=== PATIENT | female | born 1985 | race Caucasian/White ===

== ENCOUNTER 2022-03-25 10:59 | Outpatient (CLI) | payer MEDICARE, MEDICAID, SELFPAY ==
[2022-03-25 11:19] LABS: Basophils Percent Auto 2.2 % (0.0-3.0); Eosinophils Percent Auto 1.7 % (0.0-7.0); Hematocrit 43.7 % (33.0-51.0); Hemoglobin* 14.6 gm/dL (12.0-16.0); Immature Granulocytes Pct Auto 0.2 %; Lymphocytes Percent Auto 30.7 % (20-44); Mean Corpuscular HGB Conc 33 gm/dL (32-36); Mean Corpuscular Hemoglobin 33 pg (26-34); Mean Corpuscular Volume 98 fL (80-100); Monocytes Percent Auto 9.2 % (0.0-11.0); Platelet Count* 209 K/uL (140-440); RDW Coefficient of Variation % 12.7 % (11.5-15.5); Red Blood Count 4.47 m/uL (4.00-5.20); White Blood Count* 4.04 K/uL (4.50-11.00)
[2022-03-25 11:51] LABS: Slide Review Reflex No
[2022-03-25 14:28] LABS: Chloride* 104 mmol/L (96-114); Potassium* 4.6 mmol/L (3.6-5.1); Sodium* 137 mmol/L (135-149)
[2022-03-25 14:31] LABS: Alanine Aminotransferase* 33 U/L (4-35); Alkaline Phosphatase* 74 U/L (40-150); Aspartate Amino Transferase* 43 U/L (12-35); Bilirubin Total* 0.8 mg/dL (0.1-1.5); Blood Urea Nitrogen* 19 mg/dL (5-24); Calcium* 8.6 mg/dL (8.4-10.6); Carbon Dioxide* 27 mmol/L (20-32); Creatinine* 1.2 mg/dL (0.5-1.5); Estimated Glomerular Filt Rate 60 ml/min; Glucose* 89 mg/dL (60-115); Total Protein* 7.2 g/dL (6.0-8.3); Triglycerides* 55 mg/dL (40-149)
[2022-03-25 15:24] LABS: HDL Cholesterol* 56 mg/dL (>=50); LDL Cholesterol Calculated 85 mg/dL (<100)
[2022-03-25 15:42] LABS: Cholesterol* 152 mg/dL (90-199)
== END 2022-03-25 11:00 | disposition home or self-care (01) ==
PROVIDERS: PCP Family Medicine; Visit Provider Family Medicine
DX: Z01.419 Encounter for gynecological examination (general) (routine) without abnormal findings (principal); E03.9 Hypothyroidism, unspecified; J30.9 Allergic rhinitis, unspecified; N39.0 Urinary tract infection, site not specified; D72.819 Decreased white blood cell count, unspecified; B00.1 Herpesviral vesicular dermatitis
CPT/HCPCS: 80053; 80061; 84443; 85025

== ENCOUNTER 2023-04-03 15:53 | Outpatient (CLI) | payer MEDICARE, MEDICAID, SELFPAY | END 2023-04-03 15:54 | disposition home or self-care (01) | PROVIDERS: PCP Family Medicine; Visit Provider Family Medicine | DX: Z00.00 Encounter for general adult medical examination without abnormal findings (principal); E03.9 Hypothyroidism, unspecified; D72.819 Decreased white blood cell count, unspecified | CPT/HCPCS: 80053; 84443 ==

== ENCOUNTER 2023-07-31 13:50 | Outpatient (CLI) | payer MEDICARE, MEDICAID, SELFPAY | END 2023-07-31 13:51 | disposition home or self-care (01) | PROVIDERS: PCP Family Medicine; Visit Provider Internal Medicine | DX: R07.89 Other chest pain (principal); R00.1 Bradycardia, unspecified | CPT/HCPCS: 93306 ==

== ENCOUNTER 2023-09-14 14:01 | Outpatient (CLI) | payer MEDICARE, MEDICAID, SELFPAY ==
--- OUTSIDE RECORDS SUMMARY | 2023-09-14 14:08 | XMS_ITS | Clinical Summary ---
Author Name Unknown Organization [employer] [facility] Address [place], [place] [address] Care Team Providers Care Rn School Name Role Phone Lisa St MD Primary Care Provider + Allergies No known active allergies Medications Medication Sig Dispensed Refills Start Date End Date Status Levothyroxine 50 mcg cap Take by mouth before breakfast. 0 04/08/2020 Active levocetirizine (XYZAL) 5 mg tab tablet Take 1 tablet by mouth once daily in the evening. 0 04/08/2020 Active trimethoprim 100 mg tablet Take 1 tablet by mouth once daily. For UTI prevention 0 04/08/2020 Active Encounters Date Type Department Care Team Description 08/23/2023 Telephone [place] [address] [place], [place] [id number] [place] [phone] Wen Parks MD Cardiovascular Diagnostic Testing (Echo results) 07/31/2023 2:00 PM MANAGER REPORT Orders Only [facility] [address] [place] [address] 2 scans: (2-Ord) ECHO TTE COMPLETE WO CONTRAST ([id number]) 07/31/2023 Travel 07/14/[address] [facility] at [address] [phone] Wen Parks MD Results from Last 3 Months Social History Tobacco Use Types Packs/Day Years Used Date Smoking Tobacco: Never Smokeless Tobacco: Never Tobacco Cessation:Counseling Given: Yes Social Connections Answer Date Recorded Frequency of Communication with Friends and Fami ly Not on file 02/13/2023 Sex and Gender Information Value Date Recorded Sex Assigned at Not on file Gender Identity Not on file Sexual Orientation Not on file Obstetrics History Last Filed Vital Signs Vital Sign Reading Time Taken Comments Blood Pressure - - Pulse 59 04/08/2020 1:43 PM CDT Temperature - - Respiratory Rate - - Oxygen Saturation 99% 04/08/2020 1:43 PM CDT Inhaled Oxygen Concentration - - Weight 60.8 kg (134 lb) 04/08/2020 1:43 PM CDT Height - - Body Mass Index - - Plan of Treatment Health Maintenance Due Date Last Done Comments COVID-19 vaccine series (#1) 06/21/1986 Tdap 1996 Depression screening for age 12+ 1997 HIV for age 15-65 2000 BMI (ht and wt on same day) for age 18+ 12/20/2003 Hepatitis C screening for ag e 18-79 12/20/2003 Tetanus booster 2005 Pap test for age 21-65 2006 Influenza for age 9-49 04/21/2023 Pneumococcal series for age 6-64 Aged Out No longer eligible based on patient's age to complete this topic Procedures Procedure Name Priority Date/Time Associated Diagnosis Comments ECHO TTE COMPLETE WO CONTRAST Routine 07/31/2023 3:02 PM MANAGER REPORT Chest pain EXTENDED HOLTER Routine 06/20/2023 Sinus bradycardia from Last 3 Months Results * ECHO TTE COMPLETE WO CONTRAST (07/31/2023 3:02 PM MANAGER REPORT) AORTIC VALVE MEAN PG 4 mmHg EJECTION FRACTION 67 % LVEDD 3.7 cm EJECTION FRACTION 60 - 65% Anatomical Region Laterality Modality Ultrasound 07/31/2023 2:19 PM MANAGER REPORT Narrative 07/31/2023 4:12 PM MANAGER REPORT ECHOCARDIOGRAM DON Bina RUBIA ?Accession#: ?? [id number] : ?1985 37 years Study Date: ?? 07/31/2023 2:19:43 PM Gender: F ? BP: ? 125/80 mmHg Height: 155.00 cm ? BSA: ?1.57 m? ? ? Weight: 59.00 kg ?Tech: ? MTS ?Referring MD: WEN PARKS Site: ? [facility] Reading Location: MOBILE OP Patient Location: Outpatient. Procedure: 2D. Indication for study: Chest pain Cardiac Rhythm: Normal sinus.Study quality: Fair. Imaging limitations: This study was subject to imaging limitations due to body habitus and a prominent lung artifact. Final Impressions: 1. Normal LV size, normal wall thickness, normal global systolic function with an estimated EF of 60 - 65%. 2. Right ventricular cavity size is normal, global systolic RV function is normal. 3. The anterior leaflet of the mitral valve is elongated with a short posterior leaflet. There is mild MR. There is no LV hypertrophy or valve prolapse. Chamber Sizes and Function Normal left ventricular size, normal wall thickness, normal global systolic function with an estimated EF of 60 - 65%. Left atrial size is normal. Right ventricular cavity size is normal, global systolic RV function is normal. RV wall thickness is normal. The right atrium is normal. The pulmonary artery is of normal size and origin. The sinus of Valsalva is normal sized. The ascending aorta is normal sized. Valves, RV Pressures and Diastolic Function The aortic valve is trileaflet, no stenosis and no regurgitation. The mitral valve is normal in structure, mild mitral regurgitation. Normal diastolic function. The tricuspid valve is normal in structure. Tricuspid regurgitation is trace regurgitation. The pulmonic valve is normal. Trace pulmonary regurgitation. Masses, Effusion, Shunts There is no pericardial effusion. The inferior vena cava is normal sized, respiratory size variation greater than 50%. No left to right shunting was detected by limited color flow Doppler interrogation of the interatrial septum. MEASUREMENTS AND CALCULATIONS 2-D Measurements and LV Function: LVID (d) 3.7 cm LV FS% (2D) ?? 43 % LVID (s) 2.1 cm LVOT diameter 1.7 cm IVS (d) ??0.8 cm HR ?79 bpm LVPW (d) 0.7 cm RV Max 4C (d) 2.9 cm Ao Sinus 2.7 cm Asc Ao ?? 2.1 cm LA ? 3.2 cm Diastology: Mitral ?Tissue Doppler ?Pulmonary veins E Peak 1.1 m/s ??e', Septum ? 0.10 m/s Pulm s ?36.9 cm/s A Peak 0.8 m/s ??e', Lateral ?0.12 m/s Pulm d ?46.4 cm/s E/A ?1.4 ?E/e' Average ?? 9.72 ? Pulm s/d ratio ??0.80 DT ? 192 msec Aortic Valve: Vmax ? 1.4 m/s ??JEANINE (V) ?? 1.35 cm? ? ? VTI ?0.31 m ?? JEANINE (I) ?? 1.14 cm? ? ? LVOT V max 0.8 m/s ??Max PG ?8 mmHg LVOT VTI ?? 0.16 m ?? Mean PG ?? 4 mmHg SV ? 35 ml ?Dim Index 0.51 SV index ?? 22 ml/m? ? ? CO ?2.8 l/min ?CI ?1.8 l/min/m? ? ? Mitral Valve: MVA ?4.0 cm? ? ? MV P 1/2 56 msec Tricuspid Valve and estimated PA pressures: TAPSE 2.5 cm . This study was interpreted by an [facility] accredited facility. CC: [facility] (med records) [facility]. ??Final ?? Procedure Note Buddy Martin MD - 07/31/2023 ECHOCARDIOGRAM DON BARKLEY : 1985 37 years Study Date: 07/31/2023 2:19:43 PM Gender: F BP: 125/80 mmHg Height: 155.00 cm BSA: 1.57 m? ? ? Weight: 59.00 kg Tech: [facility] Referring MD: WEN PARKS Site: [facility] Reading Location: MOBILE OP Patient Location: Outpatient. Procedure: 2D. Indication for study: Chest pain Cardiac Rhythm: Normal sinus.Study quality: Fair. Imaging limitations: This study was subject to imaging limitations due tobody habitus and a prominent lung artifact. Final Impressions: 1. Normal LV size, normal wall thickness, normal global systolic functionwith an estimated EF of 60 - 65%. 2. Right ventricular cavity size is normal, global systolic RV functionis normal. 3. The anterior leaflet of the mitral valve is elongated with a shortposterior leaflet. There is mild MR. There is no LV hypertrophy or valveprolapse. Chamber Sizes and Function Normal left ventricular size, normal wall thickness, normal globalsystolic function with an estimated EF of 60 - 65%. Left atrial size isnormal. Right ventricular cavity size is normal, global systolic RVfunction is normal. RV wall thickness is normal. The right atrium isnormal. The pulmonary artery is of normal size and origin. The sinus ofValsalva is normal sized. The ascending aorta is normal sized. Valves, RV Pressures and Diastolic Function The aortic valve is trileaflet, no stenosis and no regurgitation. Themitral valve is normal in structure, mild mitral regurgitation. Normaldiastolic function. The tricuspid valve is normal in structure. Tricuspidregurgitation is trace regurgitation. The pulmonic valve is normal. Tracepulmonary regurgitation. Masses, Effusion, Shunts There is no pericardial effusion. The inferior vena cava is normal sized,respiratory size variation greater than 50%. No left to right shunting wasdetected by limited color flow Doppler interrogation of the interatrialseptum. MEASUREMENTS AND CALCULATIONS 2-D Measurements and LV Function: LVID (d) 3.7 cm LV FS% (2D) 43 % LVID (s) 2.1 cm LVOT diameter 1.7 cm IVS (d) 0.8 cm HR 79 bpm LVPW (d) 0.7 cm RV Max 4C (d) 2.9 cm Ao Sinus 2.7 cm Asc Ao 2.1 cm LA 3.2 cm Diastology: Mitral Tissue Doppler Pulmonary veins E Peak 1.1 m/s e', Septum 0.10 m/s Pulm s 36.9 cm/s A Peak 0.8 m/s e', Lateral 0.12 m/s Pulm d 46.4 cm/s E/A 1.4 E/e' Average 9.72 Pulm s/d ratio 0.80 DT 192 msec Aortic Valve: Vmax 1.4 m/s JEANINE (V) 1.35 cm? ? ? VTI 0.31 m JEANINE (I) 1.14 cm? ? ? LVOT V max 0.8 m/s Max PG 8 mmHg LVOT VTI 0.16 m Mean PG 4 mmHg SV 35 ml Dim Index 0.51 SV index 22 ml/m? ? ? CO 2.8 l/min CI 1.8 l/min/m? ? ? Mitral Valve: MVA 4.0 cm? ? ? MV P 1/2 56 msec Tricuspid Valve and estimated PA pressures: TAPSE 2.5 cm . This study was interpreted by an [facility] accredited facility. CC: [facility] (med records) [facility]. Final Wen Parks MD ECHO ORD * ZIO PATCH XT - weekly to monthly symptoms. (06/20/2023) George Lizama Kevinashley Forman-Tj - 06/20/2023 Patient enrolled with vendor this date for Extended Holter home enrollment, duration 7 days. Device will be mailed to patient by vendor. ??Report will be found in the Procedures tab approximately 7-10 days after end of monitor period. Wen Parks MD CARDIAC SERVICES ORD from Last 3 Months Care Teams Rn School Relationship Specialty Start Date End Date Lisa St MD [address] [facility] [place] [id number] PCP - General Family Practice 04/08/20
== END 2023-09-14 14:02 | disposition home or self-care (01) ==
PROVIDERS: PCP Family Medicine; Visit Provider Family Medicine
DX: E03.9 Hypothyroidism, unspecified (principal); G90.1 Familial dysautonomia [Riley-Day]
CPT/HCPCS: 80053; 84443

== ENCOUNTER 2024-05-06 11:20 | Outpatient (CLI) | payer MEDICARE, MEDICAID, SELFPAY ==
--- OUTSIDE RECORDS SUMMARY | 2024-05-06 11:24 | XMS_ITS | Clinical Summary ---
Author Organization [employer] [facility] [employer] Address [place], [place] [address] Care Team Providers Care Fleet Operations Manager Name Role Phone Lisa St MD Primary [...] daily. For UTI prevention 0 04/08/2020 Active Social History Tobacco Use Types Packs/Day Years [...] Health Maintenance Due Date Last Done Comments Tdap 1996 Depression screening for age 12+ 1997 HIV for age 15-65 2000 BMI (ht and wt on same day) for age 18+ 12/20/2003 Hepatitis C screening for ag e 18-79 12/20/2003 Tetanus booster 2005 Pap test for age 21-65 2006 COVID-19 vaccine series ( season) 2024 Influenza for age 9-49 04/21/2024 Pneumococcal series for age 6-64 Aged Out No longer eligible based on patient's age to complete this topic Care Teams Fleet Operations Manager Relationship Specialty Start Date End Date Lisa St MD [address] [facility] [place] [id number] PCP - General Family Practice 04/08/20
== END 2024-05-06 11:21 | disposition home or self-care (01) ==
PROVIDERS: PCP Family Medicine; Visit Provider Family Medicine
DX: E03.9 Hypothyroidism, unspecified (principal); Z13.228 Encounter for screening for other metabolic disorders
CPT/HCPCS: 80053; 84443

== ENCOUNTER 2024-06-14 13:29 | Outpatient (CLI) | payer MEDICARE, MEDICAID, SELFPAY ==
--- OUTSIDE RECORDS SUMMARY | 2024-06-16 14:24 | XMS_ITS | Clinical Summary ---
Author Organization [employer] [facility] [employer] Address [place], [place] [address] Care Team Providers Care Sewing Department Supervisor Name Role Phone Lisa St MD Primary [...] age to complete this topic Care Teams Sewing Department Supervisor Relationship Specialty Start Date End Date Lisa St MD [address] [facility] [place] [id number] PCP - General Family Practice 04/08/20
== END 2024-06-14 13:30 | disposition home or self-care (01) ==
LOC: NFLDREF 06-16 14:23
PROVIDERS: PCP Family Medicine; Referring Provider Family Medicine; Visit Provider Family Medicine
DX: E03.9 Hypothyroidism, unspecified (principal)
CPT/HCPCS: 84439; 84443; 84481

== ENCOUNTER 2025-06-30 13:36 | Outpatient (CLI) | payer MEDICARE, MEDICAID, SELFPAY | END 2025-06-30 13:37 | disposition home or self-care (01) | PROVIDERS: PCP Family Medicine; Visit Provider Family Medicine | DX: E03.9 Hypothyroidism, unspecified (principal); Z00.00 Encounter for general adult medical examination without abnormal findings | CPT/HCPCS: 80053; 84443 ==